=== PATIENT | male | born 1965 | race Caucasian/White ===

== ENCOUNTER 2018-12-08 20:46 | Emergency (ER) | payer MEDICAID ==
[~2018-12-08] VITALS: Ht 170.2 cm; Wt 84.0 kg
[2018-12-08 20:50] VITALS: BP 116/77; PULSE 83; RESP 16; Ht 170.2 cm; Wt 84.0 kg
[2018-12-08] MEDS ORDERED: IBUP-1542 PO (21:20)
[2018-12-08] MEDS ORDERED: CEPH-443 PO (21:20)
[2018-12-08] MEDS ORDERED: ACET1TAB40 PO (21:20)
[2018-12-08] MEDS ORDERED: LIDOCAINE 1% (MDV) 20 ML INJ SC ONE (21:30)
[2018-12-08] MEDS ORDERED: IBUPROFEN 600 MG TAB PO ONE (21:30)
[2018-12-08] MEDS ORDERED: DIPHTH/TET/ACEL PERTUSS (ADULT) 0.5 ML VIAL IM* ONE (21:30)
--- NOTE | 2018-12-08 21:38 | ERD ---
ER Documentation Chief Complaint Chief Complaint left foot pain. HPI 53-year-old male presents with a laceration to his left lateral ankle after a couch dropped on it. He has pain in the lateral malleolus. He has difficulty ambulating due to pain. No restricted range of motion deficits. He denies other injury. Tetanus is not up-to-date. ROS All systems reviewed and are negative except as per history of present illness. Medications Home Meds Active Scripts Acetaminophen with Codeine (Acetaminophen-Cod #3 Tablet) 1 Each Tablet, 1 TAB PO Q6H PRN for PAIN, #7 TAB Prov:GIANFRANCO MAYNARD MD 12/08/18 Ibuprofen* (Motrin*) 600 Mg Tab, 600 MG PO Q6, #20 TAB Prov:GIANFRANCO MAYNARD MD 12/08/18 Cephalexin* (Keflex*) 500 Mg Capsule, 500 MG PO QID for 7 Days, CAP Prov:GIANFRANCO MAYNARD MD 12/08/18 Allergies Allergies: Coded Allergies: No Known Allergy (Unverified , 12/08/18) PMhx/Soc Medical and Surgical Hx: pt denies Medical Hx, pt denies Surgical Hx Hx Alcohol Use: No Hx Substance Use: No Hx Tobacco Use: No FmHx Family History: No diabetes, No coronary disease, No other Physical Exam Vitals Vital Signs Date Temp Pulse Resp B/P (MAP) Pulse Ox O2 O2 Flow FiO2 Time Delivery Rate 12/08/18 98.4 83 16 116/77 96 20:50 (90) Physical Exam Const: No acute distress Head: Atraumatic Eyes: Normal Conjunctiva ENT: Normal External Ears, Nose and Mouth. Neck: Full range of motion. No meningismus. Resp: Clear to auscultation bilaterally Cardio: Regular rate and rhythm, no murmurs Abd: Soft, non tender, non distended. Normal bowel sounds Skin: No petechiae or rashes Back: No midline or flank tenderness Ext: No cyanosis, or edema. Approximately 3.5 cm laceration which is U- shaped on the lateral malleolus. No appreciable penetration to bone. No ap preciable bony deformities. No restricted range of motion or deficits. Neur: Awake and alert Psych: Normal Mood and Affect Results 24 hrs Current Medications Medications Dose Sig/Lilian Start Time Status Last (Trade) Ordered Route PRN Stop Time Admin Dose Reason Admin Diphtheria/ 0.5 ml ONCE ONCE 12/08/18 DC 12/08/18 Tetanus/Acell IM* 21:30 21:11 Pertussis 12/08/18 21:31 (Adacel) Ibuprofen 600 mg ONCE ONCE 12/08/18 DC 12/08/18 (Motrin) PO 21:30 21:11 12/08/18 21:31 Lidocaine 20 ml ONCE ONCE 12/08/18 DC (Xylocaine SC 21:30 1% (Mdv) 20 12/08/18 21:31 ml) Cefazolin 1 gm ONCE ONCE 12/08/18 Sodium IM 22:00 (Ancef) 12/08/18 22:01 Procedures/MDM X-ray left ankle 3V Interpreted by me: Bones: Nondisplaced lateral malleolus fracture appears to be avulsion of the cortex. Joints: No dislocation Foreign Body: None. Impression-avulsion fracture lateral malleolus. Patient was given Ancef 1 g IM for laceration overlying a fracture and laceration irregular and possibly dirty. Patient given ibuprofen as well. Procedure note-wound was copiously irrigated. Left lateral ankle was irrigated copiously with normal saline. 5 cc of lidocaine was used for local nutrition. Six 4-0 nylon sutures were used to approximate the wound. Patient tolerated procedure well and the wound was dressed. Resents with a laceration overlying an avulsion fracture of the left lateral malleolus. Laceration does not appear to directly overlie the fracture. Does not appear to be an open fracture requiring irrigation in the operating room. T here is no evidence of ischemia, deficits, infection. Will be discharged home with a short course of medication for pain, Keflex and instructions for 2-day wound check in 7 days suture removal. He will refer to primary care and orthopedics for further evaluation of his avulsion fracture of his lateral malleolus. He is to return sooner for fevers, redness, new worsening symptoms. The patient was stable with no new complaints during the ER course. Clinically, there is no current evidence to suggest meningitis, sepsis, acute abdomen, pneumonia, stroke, acute coronary syndrome, pulmonary embolism, aortic dissection or any other emergent condition appearing to require further evaluation or hospitalization. Patient counseled regarding my diagnostic impression and care plan. Prior to discharge all questions answered. Pt agrees with treatment plan and understands strict return precautions. Pt is instructed to follow up with primary care provider within 24-48 hours. Precautionary instructions provided including instructions to return to the ER if not improving or for any worsening or changing symptoms or concerns. Disclaimer: Inadvertent spelling and grammatical errors are likely due to EHR/dictation software use and do not reflect on the overall quality of patient care. Also, please note that the electronic time recorded on this note does not necessarily reflect the actual time of the patient encounter. Departure Diagnosis: Primary Impression: Ankle fracture, lateral malleolus, closed Encounter type: initial encounter Fracture alignment: nondisplaced Laterality: left Qualified Codes: S82.65XA - Nondisplaced fracture of lateral malleolus of left fibula, initial encounter for closed fracture Additional Impressions: Laceration Injury of foot Encounter type: initial encounter Laterality: left Qualified Codes: S99.922A - Unspecified injury of left foot, initial encounter Condition: Stable Patient Instructions: Fracture, Ankle (General), Laceration, All Referrals: BOLA BEST MD Additional Instructions: Cheque 2 marlow para cheque para infeccion. cheque 7 marlow para saca los puntos / grapas. hay un fractura tambien. Va al soliz doctor/ specialista para mas evaluacon en el proximo semana. posiblemente necesita autorizado de soliz doctor primario para specialista. Regresa para fiebre, o mas o nueva simptomas. GIANFRANCO MAYNARD MD Dec 08, 2018 21:38
[2018-12-08] MEDS ORDERED: CEFAZOLIN 1 GM INJ IM ONE (22:00)
== END 2018-12-08 22:10 | disposition home or self-care (01) ==
LOC: FTE 20:46
DX: S82.65XA Nondisplaced fracture of lateral malleolus of left fibula, initial encounter for closed fracture (principal); W20.8XXA Other cause of strike by thrown, projected or falling object, initial encounter; Y92.9 Unspecified place or not applicable; Z23 Encounter for immunization
CPT/HCPCS: 12002; 73610; 90471; 90715; 96372; J0690; Z7502; Z7610

== ENCOUNTER 2018-12-11 08:31 | Emergency (ER) | payer MEDICAID ==
[~2018-12-11] VITALS: Ht 170.2 cm; Wt 85.0 kg
[~2018-12-11 08:31] MED LIST: ACET1TAB40 PO; CEPH-443 PO; IBUP-1542 PO
[2018-12-11 08:32] VITALS: BP 115/76; PULSE 60; RESP 24; Ht 170.2 cm; Wt 85.0 kg
--- NOTE | 2018-12-11 13:53 | ERD ---
ER Documentation Chief Complaint Chief Complaint WOUND RE CHECK HPI 53-year-old male presenting for wound check of the left ankle. Patient had sutures placed 2 days ago without complication. He also sustained a fracture and is in a splint. He denies any complication or residual pain from the injury and he states that everything he is healing appropriately. He is taking Keflex. Denies other medical problems. NKDA. Surgical history denies. Social history denies ROS All systems reviewed and are negative except as per history of present illness. Medications Home Meds Active Scripts Acetaminophen with Codeine (Acetaminophen-Cod #3 Tablet) 1 Each Tablet, 1 TAB PO Q6H PRN for PAIN, #7 TAB Prov:GIANFRANCO MAYNARD MD 12/08/18 Ibuprofen* (Motrin*) 600 Mg Tab, 600 MG PO Q6, #20 TAB Prov:GIANFRANCO MAYNARD MD 12/08/18 Cephalexin* (Keflex*) 500 Mg Capsule, 500 MG PO QID for 7 Days, CAP Prov:GIANFRANCO MAYNARD MD 12/08/18 Allergies Allergies: Coded Allergies: No Known Allergy (Unverified , 12/11/18) PMhx/Soc Medical and Surgical Hx: pt denies Medical Hx, pt denies Surgical Hx Hx Alcohol Use: No Hx Substance Use: No Hx Tobacco Use: No FmHx Family History: No diabetes, No coronary disease, No other Physical Exam Vitals Vital Signs Date Temp Pulse Resp B/P (MAP) Pulse Ox O2 O2 Flow FiO2 Time Delivery Rate 12/11/18 97.0 60 24 115/76 95 08:32 (89) Physical Exam GENERAL: The patient is well-appearing, well-nourished, in no acute distress CHEST: Clear to auscultation bilaterally. There are no rales, wheezes or rhonchi. HEART: Regular rate and rhythm. No murmurs, clicks, rubs or gallops. EXTREMITIES: Equal pulses bilaterally. There is no peripheral clubbing, cyanosis or edema. No focal swelling or erythema. Full range of motion. Grossly neurovascularly intact. NEUROLOGIC: Alert and oriented. Cranial nerves II through XII intact. Motor strength in all 4 extremities with 5 out of 5 strength. Sensation grossly intact. SKIN: Healing laceration noted to the left lateral malleolus. No dehiscence of the wound and no surrounding erythema or purulence. Procedures/MDM ER course: Wound cleaned and re-bandaged. Splint applied in the ER. MDM: 53-year-old male presenting for wound recheck. I have low suspicion for wound infection. I have low suspicion of dehiscence of the wound. I have low suspicion for retained foreign body. Patient is told to return in 7 days to have sutures removed. Patient is recommended to continue wearing splint and to follow-up with orthopedist. Patient is told symptoms change or worsen to return immediately to the ER. All questions answered at discharge Departure Diagnosis: Primary Impression: Encounter for wound care Condition: Stable Patient Instructions: Wound Care, Ankle Fracture (Distal Fibula), Closed Referrals: [facility] YOU HAVE RECEIVED A MEDICAL SCREENING EXAM AND THE RESULTS INDICATE THAT YOU DO NOT HAVE A CONDITION THAT REQUIRES URGENT TREATMENT IN THE EMERGENCY DEPARTMENT. FURTHER EVALUATION AND TREATMENT OF YOUR CONDITION CAN WAIT UNTIL YOU ARE SEEN IN YOUR DOCTORS OFFICE WITHIN THE NEXT 1-2 DAYS. IT IS YOUR RESPONSIBILITY TO MAKE AN APPOINTMENT FOR FOLOW-UP CARE. IF YOU HAVE A PRIMARY DOCTOR --you should call your primary doctor and schedule an appointment IF YOU DO NOT HAVE A PRIMARY DOCTOR YOU CAN CALL OUR PHYSICIAN REFERRAL HOTLINE AT IF YOU CAN NOT AFFORD TO SEE A PHYSICIAN YOU CAN CHOSE FROM THE FOLLOWING [facility] [address] [facility]. [facility] [address] [facility] [facility] [address] [facility]. [facility] [address] [facility]. [facility] [address] [facility]. [facility]. [address] Additional Instructions: FOLLOW UP WITH YOUR PRIMARY CARE PHYSICIAN TOMORROW.Return to this facility if you are not improving as expected. LALO PHOENIX PA-C Dec 11, 2018 13:53
== END 2018-12-11 09:12 | disposition home or self-care (01) ==
LOC: FTE 08:31
DX: Z48.01 Encounter for change or removal of surgical wound dressing (principal)
CPT/HCPCS: 99281

== ENCOUNTER 2018-12-15 08:05 | Emergency (ER) | payer MEDICAID ==
[~2018-12-15] VITALS: Ht 175.3 cm; Wt 84.0 kg
[2018-12-15 08:07] VITALS: BP 129/79; PULSE 80; RESP 18; Ht 175.3 cm; Wt 84.0 kg
--- NOTE | 2018-12-15 08:49 | ERD ---
ER Documentation Chief Complaint Chief Complaint for suture removal on lt foot HPI 53-year-old male presents the ER for suture removal. Patient sustained a laceration to his left ankle 12/08/18. Patient was also noted to have a fracture to the affected extremity however fracture was not overlying the however laceration was not overlying the fracture site. Patient has been using crutches and has been in short leg splint. Patient has been taking antibiotics as prescribed. Patient denies any fevers or chills. Patient has not followed up with an robotics specialist as he states that he does not wish to. ROS All systems reviewed and are negative except as per history of present illness. Medications Home Meds Active Scripts Acetaminophen with Codeine (Acetaminophen-Cod #3 Tablet) 1 Each Tablet, 1 TAB PO Q6H PRN for PAIN, #7 TAB Prov:GIANFRANCO MAYNARD MD 12/08/18 Ibuprofen* (Motrin*) 600 Mg Tab, 600 MG PO Q6, #20 TAB Prov:GIANFRANCO MAYNARD MD 12/08/18 Cephalexin* (Keflex*) 500 Mg Capsule, 500 MG PO QID for 7 Days, CAP Prov:GIANFRANCO MAYNARD MD 12/08/18 Allergies Allergies: Coded Allergies: No Known Allergy (Unverified , 12/11/18) PMhx/Soc Medical and Surgical Hx: pt denies Medical Hx, pt denies Surgical Hx Hx Alcohol Use: No Hx Substance Use: No Hx Tobacco Use: No FmHx Family History: No diabetes Physical Exam Vitals Vital Signs Date Temp Pulse Resp B/P (MAP) Pulse Ox O2 O2 Flow FiO2 Time Delivery Rate 12/15/18 97.6 80 18 129/79 98 08:07 (96) Physical Exam Const: No acute distress Head: Atraumatic Eyes: Normal Conjunctiva ENT: Normal External Ears, Nose and Mouth. Neck: Full range of motion. No meningismus. Resp: Clear to auscultation bilaterally Cardio: Regular rate and rhythm, no murmurs Abd: Soft, non tender, non distended. Normal bowel sounds Skin: No petechiae or rashes Back: No midline or flank tenderness Ext: No cyanosis, or edema. Approximately 3.5 cm healing laceration which is U-shaped on the lateral malleolus. Mild surrounding erythema. No active bleeding or drainage. No appreciable penetration to bone. No appreciable bony deformities. No restricted range of motion or deficits. Neur: Awake and alert Psych: Normal Mood and Affect Procedures/MDM SPLINT APPLICATION: The patient was verbally consented at bedside prior to splint application. Patient was explained the risks, benefits and alternatives to this procedure. T he patient was neurovascularly intact prior to and status post application of the splint. The patient tolerated the procedure well with no complications. Splint type: short leg splint Extremity: Left ankle Indication: Lateral malleolus fracture MEDICAL DECISION MAKING: This is a 53-year-old male who presents for a wound check to laceration on his left ankle. Of note, patient also has a fracture to his lateral malleolus however laceration site is not overlying the fracture. Patient has not followed up with an robotics specialist yet.. Vital signs were reviewed. Patient is afebrile. The wound appears to be healing well with no concerns of acute infection at this time. Upon examination, it appears that patient will require more time prior to suture removal. Patient advised to return here in 3 to 4 days. Patient was also encouraged to follow-up with robotics specialist for f pascalether management of his fracture. Additional referral information is provided to the patient. Discussed risks of untreated fracture with patient. Patient is aware. Low suspicion for deep space infection, compartment syndrome. Patient advised to remain in splint until seen and cleared by robotics specialist. PRESCRIPTIONS: Continue to take antibiotics as prescribed. Complete full course. DISCHARGE: At this time, the patient is stable for discharge and outpatient management.. I have instructed the patient to promptly return to the ER for any new or worsening symptoms including increasing pain, fever, warmth, redness or swel ling. The patient and/or family expressed understanding of and agreement with this plan. All questions were answered. Home care instructions were provided. Disclaimer: Inadvertent spelling and grammatical errors are likely due to EHR/dictation software use and do not reflect on the overall quality of patient care. Also, please note that the electronic time recorded on this note does not necessarily reflect the actual time of the patient encounter. Departure Diagnosis: Primary Impression: Suture check Additional Impression: Ankle fracture, left Encounter type: initial encounter Fracture type: closed Qualified Codes: S82.892A - Other fracture of left lower leg, initial encounter for closed fracture Condition: Fair Patient Instructions: Suture Removal, No Complication Referrals: [facility] YOU HAVE RECEIVED A MEDICAL SCREENING EXAM AND THE RESULTS INDICATE THAT YOU DO NOT HAVE A CONDITION THAT REQUIRES URGENT TREATMENT IN THE EMERGENCY DEPARTMENT. FURTHER EVALUATION AND TREATMENT OF YOUR CONDITION CAN WAIT UNTIL YOU ARE SEEN IN YOUR DOCTORS OFFICE WITHIN THE NEXT 1-2 DAYS. IT IS YOUR RESPONSIBILITY TO MAKE AN APPOINTMENT FOR FOLOW-UP CARE. IF YOU HAVE A PRIMARY DOCTOR --you should call your primary doctor and schedule an appointment IF YOU DO NOT HAVE A PRIMARY DOCTOR YOU CAN CALL OUR PHYSICIAN REFERRAL HOTLINE AT IF YOU CAN NOT AFFORD TO SEE A PHYSICIAN YOU CAN CHOSE FROM THE FOLLOWING [facility] [address] [facility]. [facility] [address] [facility]. [facility] [address] [facility] [address] [facility]. [facility] [address] [facility]. [facility] [address] [facility]. [facility] YOU HAVE RECEIVED A MEDICAL SCREENING EXAM AND THE RESULTS INDICATE THAT YOU DO NOT HAVE A CONDITION THAT REQUIRES URGENT TREATMENT IN THE EMERGENCY DEPARTMENT. FURTHER EVALUATION AND TREATMENT OF YOUR CONDITION CAN WAIT UNTIL YOU ARE SEEN IN YOUR DOCTORS OFFICE WITHIN THE NEXT 1-2 DAYS. IT IS YOUR RESPONSIBILITY TO MAKE AN APPOINTMENT FOR FOLOW-UP CARE. IF YOU HAVE A PRIMARY DOCTOR --you should call your primary doctor and schedule and appointment IF YOU DO NOT HAVE A PRIMARY DOCTOR YOU CAN CALL OUR PHYSICIAN REFERRAL HOTLINE AT . IF YOU CAN NOT AFFORD TO SEE A PHYSICIAN YOU CAN CHOSE FROM THE FOLLOWING [facility] INSTITUTIONS: [facility] [address] [place] [address] [facility] [address] [place] [address] [facility] + [facility] [address] [place] [address] [facility] Urgent Care 7 a.m.- 11 p.m. Every Day of the Week NO APPOINTMENT OR AUTHORIZATION NEEDED Additional Instructions: Return in 3-4 days for suture removal. Continue antibiotics. Follow up with robotics specialist. Remain in splint. Call your primary care doctor TOMORROW for an appointment during the next 1-2 days.See the doctor sooner or return here if your condition worsens before your appointment time. HARPAL CHAPMAN PA-C Dec 15, 2018 08:49
== END 2018-12-15 09:05 | disposition home or self-care (01) ==
LOC: FTE 08:05
DX: S82.892D Other fracture of left lower leg, subsequent encounter for closed fracture with routine healing (principal); X58.XXXD Exposure to other specified factors, subsequent encounter
CPT/HCPCS: 99282

== ENCOUNTER → 2018-12-20 | Emergency (ER) | payer MEDICAID ==
[~2018-12-20] VITALS: Ht 157.5 cm; Wt 78.0 kg
[2018-12-20 09:34] VITALS: BP 133/70; PULSE 70; RESP 18; Ht 157.5 cm; Wt 78.0 kg
--- NOTE | 2018-12-20 10:02 | ERD ---
ER Documentation Chief Complaint Chief Complaint left foot suture removal HPI 53 yr old male presenting for suture removal of the left lateral foot. Patient had sutures placed when he sustained an injury including an ankle injury and fracture. Patient states his wound is healing appropriately and he is in no pain or swelling. Is taking antibiotics. He denies any other medical problems. NKDA. Surgical history denies. Social history denied ROS All systems reviewed and are negative except as per history of present illness. Medications Home Meds Active Scripts Acetaminophen with Codeine (Acetaminophen-Cod #3 Tablet) 1 Each Tablet, 1 TAB PO Q6H PRN for PAIN, #7 TAB Prov:GIANFRANCO MAYNARD MD 12/08/18 Ibuprofen* (Motrin*) 600 Mg Tab, 600 MG PO Q6, #20 TAB Prov:GIANFRANCO MAYNARD MD 12/08/18 Cephalexin* (Keflex*) 500 Mg Capsule, 500 MG PO QID for 7 Days, CAP Prov:GIANFRANCO MAYNARD MD 12/08/18 Allergies Allergies: Coded Allergies: No Known Allergy (Unverified , 12/20/18) PMhx/Soc Medical and Surgical Hx: pt denies Medical Hx, pt denies Surgical Hx Hx Alcohol Use: No Hx Substance Use: No Hx Tobacco Use: No Smoking Status: Never smoker FmHx Family History: No diabetes, No coronary disease, No other Physical Exam Vitals Vital Signs Date Temp Pulse Resp B/P (MAP) Pulse Ox O2 O2 Flow FiO2 Time Delivery Rate 12/20/18 98.1 70 18 133/70 99 09:34 (91) Physical Exam GENERAL: The patient is well-appearing, well-nourished, in no acute distress CHEST: Clear to auscultation bilaterally. There are no rales, wheezes or rhonchi. HEART: Regular rate and rhythm. No murmurs, clicks, rubs or gallops. EXTREMITIES: Equal pulses bilaterally. There is no peripheral clubbing, cyanosis or edema. No focal swelling or erythema. Full range of motion. NEUROLOGIC: Alert and oriented. Cranial nerves II through XII intact. Motor strength in all 4 extremities with 5 out of 5 strength. Sensation grossly intact. SKIN: Sutures intact with mild dehiscence of the wound however no purulence or drainage. No surrounding erythema. Procedures/MDM ER course: Sutures removed without complication. Steri-Strips applied. MDM: 53-year-old male presenting with a laceration to his lateral left malleolus and distal fibula fracture. There is a small area of dehiscence of the wound however no purulence. Patient did the antibiotics. I recommend patient to use Steri-Strips and Band-Aids to help bring edges together there is no indication for leaving stitches in or further treatment. Patient is told to clean with soap and water. Patient is told to follow-up with primary care and to return to the ER if symptoms change or worsen. All questions answered at discharge Departure Diagnosis: Primary Impression: Encounter for removal of sutures Condition: Stable Patient Instructions: Suture Removal, No Complication Referrals: [facility]ICS YOU HAVE RECEIVED A MEDICAL SCREENING EXAM AND THE RESULTS INDICATE THAT YOU DO NOT HAVE A CONDITION THAT REQUIRES URGENT TREATMENT IN THE EMERGENCY DEPARTMENT. FURTHER EVALUATION AND TREATMENT OF YOUR CONDITION CAN WAIT UNTIL YOU ARE SEEN IN YOUR DOCTORS OFFICE WITHIN THE NEXT 1-2 DAYS. IT IS YOUR RESPONSIBILITY TO MAKE AN APPOINTMENT FOR FOLOW-UP CARE. IF YOU HAVE A PRIMARY DOCTOR --you should call your primary doctor and schedule an appointment IF YOU DO NOT HAVE A PRIMARY DOCTOR YOU CAN CALL OUR PHYSICIAN REFERRAL HOTLINE AT IF YOU CAN NOT AFFORD TO SEE A PHYSICIAN YOU CAN CHOSE FROM THE FOLLOWING [facility] CLINICS [facility] [address] [facility]. [facility] [address] [facility] [address] [facility]. [facility] [address] [facility] [facility] [address] [facility]. [facility]. [address] Additional Instructions: FOLLOW UP WITH YOUR PRIMARY CARE PHYSICIAN TOMORROW.Return to this facility if you are not improving as expected. LALO PHOENIX PA-C Dec 20, 2018 10:02
== END | disposition home or self-care (01) ==
LOC: FTE 09:32
DX: Z48.02 Encounter for removal of sutures (principal)
CPT/HCPCS: 99281